=== PATIENT | female | born 1955 | race Caucasian/White ===

== ENCOUNTER 2019-04-07 23:53 | Emergency (ER) | payer BC ==
--- NOTE | 2019-04-08 00:23 | EDM.PDOC ---
ED HPI GENERAL MEDICAL PROBLEM - General Chief Complaint: General Stated Complaint: POST OP SURGERY Time Seen by Provider: 04/08/19 00:23 - History of Present Illness INITIAL COMMENTS - FREE TEXT/NARRATIVE: 63 years old female patient presented to the ER with chief complaint of postoperative leaving. She is postoperative day 0 status post elective cholecystectomy done by Dr. Ceasar Redding at the [facility]. Patient went home around 2 PM stated that since she gets home started feeling bleeding from her umbilical incision. Continuous heavy bleeding. Denies any abdominal pain. Denies any nausea or vomiting. Denies any dizziness. Denies any chest pain shortness breath. Denies any cough or fever. Denies any diarrhea or constipation. Denies any urinary symptom. Abdominal Pain Score (Numeric/FACES): 5 - Related Data Allergies Allergy/AdvReac Type Severity Reaction Status Date / Time adhesive tape Allergy Hives Verified 04/08/19 00:21 Home Meds: Home Meds Albuterol Sulfate [Proair Hfa] 8.5 gm IH Q6H 04/08/19 [History] Benazepril [Lotensin] 40 mg PO BEDTIME 04/08/19 [History] Fluticasone/Salmeterol [Fluticasone-Salmeterol 113-14 MCG Powder Inh] 2 puff IN BID 04/08/19 [History] Levothyroxine [Synthroid] 88 mcg PO ACBREAKFAST 04/08/19 [History] Metoprolol Tartrate [Lopressor] 100 mg PO BID 04/08/19 [History] Simvastatin 10 mg PO BEDTIME 04/08/19 [History] Vitamin E 400 unit PO BEDTIME 04/08/19 [History] amLODIPine [Norvasc] 5 mg PO BEDTIME 04/08/19 [History] amLODIPine [Norvasc] 5 mg PO DAILY 04/08/19 [History] cloNIDine [Catapres] 1 tab PO BID 04/08/19 [History] glipiZIDE [Glipizide Xl] 5 mg PO BEDTIME 04/08/19 [History] metFORMIN [Glucophage] 1,000 mg PO BIDMEALS 04/08/19 [History] traZODone 50 mg PO BEDTIME 04/08/19 [History] ED ROS GENERAL - Review of Systems Review Of Systems: Comprehensive ROS is negative, except as noted in HPI. ED EXAM, GENERAL - Physical Exam Exam: See Below Exam Limited By: No Limitations General Appearance: Alert, WD/WN, No Apparent Distress Head: Atraumatic, Normocephalic Neck: Normal Inspection, Supple, Non-Tender, Full Range of Motion Respiratory/Chest: No Respiratory Distress, Lungs Clear, Normal Breath Sounds, No Accessory Muscle Use, Chest Non-Tender Cardiovascular: Normal Peripheral Pulses, Regular Rate, Rhythm, No Edema, No Gallop, No JVD, No Murmur, No Rub GI/Abdominal: Normal Bowel Sounds, Soft, Other (Appropriately tender. Bleeding from the umbilical incision. Continuous.) Extremities: Normal Inspection, Normal Range of Motion, Non-Tender, Normal Capillary Refill, No Pedal Edema Neurological: Alert, Oriented, CN II-XII Intact, Normal Cognition, Normal Gait, Normal Reflexes, No Motor/Sensory Deficits Course - Vital Signs Last Recorded V/S: Last Vital Signs Temp 37.1 C 04/08/19 00:34 Pulse 84 04/08/19 00:34 Resp 17 04/08/19 00:34 BP 149/86 H 04/08/19 00:34 Pulse Ox 92 L 04/08/19 00:34 - Orders/Labs/Meds Orders: Active Orders 24 hr Category Date Time Status COMPREHENSIVE METABOLIC PN,CMP [CHEM] Urgent Lab 04/08/19 00:40 Received INR,PT,PROTHROMBIN TIME [COAG] Urgent Lab 04/08/19 00:40 Received PTT,PARTIAL THROMBOPLSTIN TIME [COAG] Urgent Lab 04/08/19 00:40 Received Labs: Laboratory Tests 04/08/19 Range/Units 00:40 WBC 13.0 H (4.5-11.0) K/uL RBC 4.99 (3.30-5.50) M/uL Hgb 13.6 (12.0-15.0) g/dL Hct 42.5 (36.0-48.0) % MCV 85 (80-98) fL MCH 27 (27-31) pg MCHC 32 (32-36) % Plt Count 306 (150-400) K/uL Neut % (Auto) 85 H (36-66) % Lymph % (Auto) 10 L (24-44) % Barron % (Auto) 4 (2-6) % Eos % (Auto) 0 L (2-4) % Baso % (Auto) 0 (0-1) % - Re-Assessments/Exams Free Text/Narrative Re-Assessment/Exam: 04/08/19 01:11 Patient was seen and examined shortly after arrival. Stable. Hemodynamically stable. Hemoglobin 13.6. Normal platelets, and INR is normal . 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 I did consulted was Dr. Copeland ER physician at the [facility] and he accepted the transfer for further management. Patient and her agrees with the plan. Stable for transfer.. Departure - Departure Time of Disposition: 01:03 Disposition: DC/Tfer to [facility] 02 Condition: Fair Clinical Impression: Postoperative bleeding from incision - Discharge Information *PRESCRIPTION DRUG MONITORING PROGRAM REVIEWED*: Not Applicable *COPY OF PRESCRIPTION DRUG MONITORING REPORT IN PATIENT EPIFANIO: Not Applicable Referrals: PCP,None [Primary Care Provider] - Forms: ED Department Discharge Sepsis Event Note - Focused Exam Vital Signs: Vital Signs Temp Pulse Resp BP Pulse Ox 04/08/19 00:34 37.1 C 84 17 149/86 H 92 L 04/08/19 00:33 37.1 C 84 17 149/86 H 92 L Date Exam was Performed: 04/08/19 Time Exam was Performed: 01:03 - My Orders Last 24 Hours: My Active Orders 04/08/19 00:40 COMPREHENSIVE METABOLIC PN,CMP [CHEM] Urgent INR,PT,PROTHROMBIN TIME [COAG] Urgent PTT,PARTIAL THROMBOPLSTIN TIME [COAG] Urgent - Assessment/Plan Last 24 Hours: My Active Orders 04/08/19 00:40 COMPREHENSIVE METABOLIC PN,CMP [CHEM] Urgent INR,PT,PROTHROMBIN TIME [COAG] Urgent PTT,PARTIAL THROMBOPLSTIN TIME [COAG] Urgent Plan: transfer to [facility]
== END 2019-04-08 01:46 ==
LOC: JP.ED 23:53
DX: L76.22 Postprocedural hemorrhage of skin and subcutaneous tissue following other procedure (principal); Z91.09 Other allergy status, other than to drugs and biological substances
CPT/HCPCS: 36415; 80053; 85025; 85610; 85730; 99284

== ENCOUNTER 2019-12-07 20:22 | Emergency (ER) | payer MEDICARE, BC ==
--- NOTE | 2019-12-07 21:04 | EDM.PDOC ---
ED HPI GENERAL MEDICAL PROBLEM - General Chief Complaint: Fever Stated Complaint: HEADACH,STOMACH PAIN Time Seen by Provider: 12/07/19 20:45 Source of Information: Reports: Patient, Old Records, RN History Limitations: Reports: No Limitations - History of Present Illness INITIAL COMMENTS - FREE TEXT/NARRATIVE: 64 yo female presents with intermittent fevers for about a week along with a RAHMAN and some L jaw area pain. She has been taking acetaminophen for her sx's. Has not been to the clinic or discussed her sx's with her provider. Has had a faintly red area in her L flank for most of this time that is really not changing. Onset: Gradual Onset Date: 11/30/19 Duration: Week(s): (1), Waxing/Waning Location: Reports: Generalized Quality: Reports: Ache (head) Severity: Mild Improves with: Reports: Medication (acetaminophen) Worsens with: Reports: Other (unknown) Context: Reports: Other (See HPI) Associated Symptoms: Reports: Fever/Chills, Headaches, Malaise, Rash (L flank area). Denies: Cough, Seizure, Shortness of Breath Treatments [employer]: Reports: Acetaminophen - Related Data Allergies Allergy/AdvReac Type Severity Reaction Status Date / Time adhesive tape Allergy Hives Verified 12/07/19 20:38 Home Meds: Home Meds Albuterol Sulfate [Proair Hfa] 8.5 gm IH Q6H 04/08/19 [History] Benazepril [Lotensin] 40 mg PO BEDTIME 04/08/19 [History] Fluticasone/Salmeterol [Fluticasone-Salmeterol 113-14 MCG Powder Inh] 2 puff IN BID 04/08/19 [History] Levothyroxine [Synthroid] 88 mcg PO ACBREAKFAST 04/08/19 [History] Metoprolol Tartrate [Lopressor] 100 mg PO BID 04/08/19 [History] Simvastatin 10 mg PO BEDTIME 04/08/19 [History] Vitamin E (Dl,Tocopheryl Acet) [Vitamin E] 400 unit PO BEDTIME 04/08/19 [History] amLODIPine [Norvasc] 5 mg PO BEDTIME 04/08/19 [History] amLODIPine [Norvasc] 5 mg PO DAILY 04/08/19 [History] cloNIDine [Catapres] 1 tab PO BID 04/08/19 [History] glipiZIDE [Glipizide Xl] 5 mg PO BEDTIME 04/08/19 [History] metFORMIN [Glucophage] 1,000 mg PO BIDMEALS 04/08/19 [History] traZODone 50 mg PO BEDTIME 04/08/19 [History] Doxycycline [Vibramycin] 100 mg PO BID #20 cap 12/07/19 [Rx] Past Medical History HEENT History: Reports: Cataract, Impaired Vision Cardiovascular History: Reports: High Cholesterol, Hypertension Respiratory History: Reports: Asthma Gastrointestinal History: Reports: G[employer]D W[employer] 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 right wrist and thumb pain Endocrine/Metabolic History: Reports: Diabetes, Type II, Hypothyroidism, Vitamin D Deficiency Dermatologic History: Reports: Urticaria - Infectious Disease History Infectious Disease History: Reports: Chicken Pox, Measles, Mumps - Past Surgical History HEENT Surgical History: Reports: Cataract Surgery GI Surgical History: Reports: Cholecystectomy, Colonoscopy Endocrine Surgical History: Reports: Thyroid Biopsy, Thyroidectomy Neurological Surgical History: Reports: Other (See Below) Other Neurological Surgeries/Procedures: "cleaned out" and said it was degenerative Musculoskeletal Surgical History: Reports: None Social & Family History - Tobacco Use Smoking Status *Q: Never Smoker - Caffeine Use Caffeine Use: Reports: None ED ROS GENERAL - Review of Systems Review Of Systems: See Below Constitutional: Reports: No Symptoms HEENT: Reports: Other (L jaw area pain) Respiratory: Reports: No Symptoms Cardiovascular: Reports: No Symptoms Endocrine: Reports: No Symptoms GI/Abdominal: Reports: No Symptoms : Reports: No Symptoms Musculoskeletal: Reports: No Symptoms Skin: Reports: Rash (L flank area), Erythema (L flank area ) Neurological: Reports: Headache Psychiatric: Reports: No Symptoms ED EXAM, GENERAL - Physical Exam Exam: See Below Exam Limited By: No Limitations General Appearance: Alert, WD/WN, No Apparent Distress Eye Exam: Bilateral Eye: Normal Inspection Ears: Normal External Exam, Normal Canal, Hearing Grossly Normal, Normal TMs Ear Exam: Bilateral Ear: Auricle Normal, Canal Normal, TM normal Nose: Normal Inspection, No Blood Throat/Mouth: Normal Inspection, Normal Lips, Normal Oropharynx, Normal Voice, No Airway Compromise Head: Atraumatic, Normocephalic Neck: Normal Inspection, Lymphadenopathy (L). No: Lymphadenopathy (R) Respiratory/Chest: No Respiratory Distress, Lungs Clear, Normal Breath Sounds, No Accessory Muscle Use Cardiovascular: Regular Rate, Rhythm, No Edema GI/Abdominal: Normal Bowel Sounds, Soft, Non-Tender, No Distention Back Exam: No: CVA Tenderness (R), CVA Tenderness (L) Extremities: Normal Inspection, Normal Range of Motion, Non-Tender, No Pedal Edema Neurological: Alert, Oriented, CN II-XII Intact, Normal Cognition, No Motor/Sensory Deficits Psychiatric: Normal Affect, Normal Mood Skin Exam: Warm, Dry, Intact, No Rash, Erythema (L flank area skin is pinkish to an area measuring about 10 x 8 cm. ). No: Diaphoretic, Ecchymosis, Increased Warmth, Lymphangitis, Petechiae, Wound/Incision, Zoster-Like Rash Course - Vital Signs Last Recorded V/S: Last Vital Signs Temp 36.5 C 12/07/19 20:48 Pulse 83 12/07/19 20:48 Resp 14 12/07/19 20:48 BP 120/83 12/07/19 20:48 Pulse Ox 98 12/07/19 20:48 - Orders/Labs/Meds Orders: Active Orders 24 hr Category Date Time Status LYME, TOTAL AB TEST/REFLEX Routine Lab 12/07/19 21:18 Received Labs: Laboratory Tests 12/07/19 12/07/19 12/07/19 Range/Units 21:05 21:05 21:57 WBC 12.3 H (4.5-11.0) K/uL RBC 4.39 (3.30-5.50) M/uL Hgb 11.9 L (12.0-15.0) g/dL Hct 37.2 (36.0-48.0) % MCV 85 (80-98) fL MCH 27 (27-31) pg MCHC 32 (32-36) % Plt Count 460 H (150-400) K/uL Sodium 138 L (140-148) mmol/L Potassium 3.9 (3.6-5.2) mmol/L Chloride 100 (100-108) mmol/L Carbon Dioxide 27 (21-32) mmol/L Anion Gap 14.9 H (5.0-14.0) mmol/L BUN 15 (7-18) mg/dL Creatinine 1.2 H (0.6-1.0) mg/dL Est Cr Clr Drug Dosing 43.75 mL/min Estimated GFR (MDRD) 45 L (>60) Glucose 178 H (74-106) mg/dL Calcium 9.0 (8.5-10.1) mg/dL Urine Color Yellow (YELLOW) Urine Appearance Clear (CLEAR) Urine pH 6.5 (5.0-8.0) Ur Specific Logan 1.025 (1.008-1.030) Urine Protein 30 H (NEGATIVE) mg/dL Urine Glucose (UA) Negative (NEGATIVE) mg/dL Urine Ketones 15 H (NEGATIVE) mg/dL Urine Occult Blood Negative (NEGATIVE) Urine Nitrite Negative (NEGATIVE) Urine Bilirubin Small H (NEGATIVE) Urine Urobilinogen 0.2 (0.2-1.0) EU/dL Ur Leukocyte Esterase Negative (NEGATIVE) Urine RBC Not seen (0-5) Urine WBC 0-5 (0-5) Ur Epithelial Cells Few Urine Bacteria Not seen Urine Mucus Moderate Meds: Medications Discontinued Medications Generic Name Dose Route Start Last Admin Trade Name Reginaldq PRN Reason Stop Dose Admin Doxycycline Hyclate 100 mg 12/07/19 22:16 Vibramycin PO 12/07/19 22:17 ONETIME ONE Departure - Departure Time of Disposition: 22:25 Disposition: Home, Self-Care 01 Condition: Fair Clinical Impression: Tick-borne fever - Discharge Information *PRESCRIPTION DRUG MONITORING PROGRAM REVIEWED*: Not Applicable *COPY OF PRESCRIPTION DRUG MONITORING REPORT IN PATIENT EPIFANIO: Not Applicable Prescriptions: Doxycycline [Vibramycin] 100 mg PO BID #20 cap Referrals: PCP,None [Primary Care Provider] - Forms: ED Department Discharge Additional Instructions: Drink more fluids. Take doxycycline every 12 hrs. Eat/drink nothing with calcium in it for 2 hrs before or after this med. You may continue acetaminophen for fever control. Recheck with your provider by or Sunday to review outstanding tests. Sepsis Event Note (ED) - Evaluation Sepsis Screening Result: No Definite Risk - Focused Exam Vital Signs: Vital Signs Temp Pulse Resp BP Pulse Ox 12/07/19 20:48 36.5 C 83 14 120/83 98 - My Orders Last 24 Hours: My Active Orders 12/07/19 21:18 LYME, TOTAL AB TEST/REFLEX Routine - Assessment/Plan Last 24 Hours: My Active Orders 12/07/19 21:18 LYME, TOTAL AB TEST/REFLEX Routine
[2019-12-07] MEDS ORDERED: Doxycycline 100 MG Cap PO ONE (22:16)
[2019-12-18 23:10] LABS: IGG P18 AB. Absent (.); IGG P23 AB. Absent (.); IGG P28 AB. Absent (.); IGG P30 AB. Absent (.); IGG P39 AB. Absent (.); IGG P41 AB. Present (.); IGG P45 AB. Absent (.); IGG P58 AB. Absent (.); IGG P66 AB. Absent (.); IGG P93 AB. Absent (.); IGM P23 AB. Present (.); IGM P39 AB. Present (.); IGM P41 AB. Present (.); LYME IGG WB INTERP. Negative (.); LYME IGG/IGM AB 1.66 ISR (0.00-0.90); LYME IGM WB INTERP. Positive (.)
== END 2019-12-07 22:27 | disposition home or self-care (01) ==
LOC: JP.ED 20:22
DX: A93.8 Other specified arthropod-borne viral fevers (principal); I10 Essential (primary) hypertension; J45.909 Unspecified asthma, uncomplicated; E11.9 Type 2 diabetes mellitus without complications; Z79.84 Long term (current) use of oral hypoglycemic drugs; Z90.49 Acquired absence of other specified parts of digestive tract; Z91.09 Other allergy status, other than to drugs and biological substances; Z79.899 Other long term (current) drug therapy
CPT/HCPCS: 36415; 80048; 81001; 85027; 99283; A9270; 86617-59; 86618